=== PATIENT | female | born 1980 | race American Indian/Alaskan Native ===

== ENCOUNTER 2021-12-12 14:10 | Emergency (ER) | payer SELFPAY ==
--- NOTE | 2021-12-12 16:01 | Emergency Department Report ---
Stated Complaint: RIGHT KNEE AND FOOT PAIN SWOLLEN - HPI History of Present Illness: Right foot pain. 41-year-old male presenting with right knee pain, right foot pain. Patient report has had multiple trauma of looking through strapping on her knee and her fluids from work. Pain progressively worse. Difficulty ambulating. She denies chest pain, shortness of breath, weakness dizziness headache or vision changes. She reports knee pain, foot pain, no numbness or tingling. Well appearing female nontoxic-appearing ambulating with difficulty limping. Otherwise no obvious swelling or discoloration or deformity of extremities In the setting of a significantly high volume and record number of patients presenting to the emergency department and the fact that we have a limited space to see patients we have implemented the provider in triage protocol this allows an expedited initial exam of patients that might otherwise have left without being seen or who would wait longer than usual to be seen by provider. I interviewed the patient and performed a limited physical exam. This patient is a pulled from the waiting room to triage room for an initial assessment of adrenal studies and then returned to the waiting room pending results of the studies. The ultimate final evaluation and disposition may be performed by another provider depending on room and provider availability. MSE screening note: Focused history and physical exam performed. Due to findings the following was ordered: ED Disposition for MSE Condition: Stable
--- NOTE | 2021-12-12 16:27 | XRay Report ---
RIGHT FOOT 3 VIEWS INDICATION / CLINICAL INFORMATION: Blunt trauma to right foot (luggage dropped on foot). Pain in right foot. COMPARISON: None available. FINDINGS: BONES and JOINT(S): No acute fracture or subluxation. No significant arthritis. SOFT TISSUES: No significant abnormality. ADDITIONAL FINDINGS: None. IMPRESSION: 1. No acute findings. Signer Name: Chas Lawrence MD Signed: 12/12/2021 4:23 PM Workstation Name: [id number]
--- NOTE | 2021-12-12 16:29 | XRay Report ---
RIGHT KNEE 3 VIEWS INDICATION / CLINICAL INFORMATION: History of blunt trauma to right knee (largest drop on the). Pain in right knee. COMPARISON: None available. FINDINGS: BONES and JOINT(S): No acute fracture or subluxation. There is mild tricompartmental osteoarthritis. SOFT TISSUES: No significant abnormality. ADDITIONAL FINDINGS: None. IMPRESSION: 1. No acute findings. 2. Mild osteoarthritis. Signer Name: Chas Lawrence MD Signed: 12/12/2021 4:24 PM Workstation Name: [email or web address]
--- NOTE | 2021-12-12 23:57 | Emergency Department Report ---
ED Lower Extremity HPI - General Chief Complaint: Extremity Injury, Lower Stated Complaint: RIGHT KNEE AND FOOT PAIN SWOLLEN Time Seen by Provider: 12/12/21 23:55 Source: patient Mode of arrival: Ambulatory Limitations: No Limitations - History of Present Illness Initial Comments: 41-year-old female presents emerged from complaining pain to the right knee which started after she accidentally bumped into the tub 2 weeks ago and reports continued pain to the area pain is worse with palpation and prolonged standing. No numbness, no tingling, fever, chills, sweats. Also has pain to the top of the right foot for the last week stating, vaginitis accidentally fell on her foot resulting in pain and swelling which is much department seeking further ryan luation treatment options. MD Complaint: knee injury, foot injury -: Gradual Injury: Foot: Right Type of Injury: blunt Place: home Severity: mild, moderate Context: direct blow Associated Symptoms: swelling - Related Data Previous Rx's Medication Instructions Recorded Last Taken Type Ketorolac [Toradol] 10 mg PO Q6H PRN #14 12/13/21 Unknown Rx Allergies Allergy/AdvReac Type Severity Reaction Status Date / Time No Known Allergies Allergy Verified 12/12/21 15:55 ED Review of Systems ROS: Stated complaint: RIGHT KNEE AND FOOT PAIN SWOLLEN Other details as noted in HPI Comment: All other systems reviewed and negative ED Past Medical Hx - Past Medical History Hx Hypertension: Yes - Surgical History Additional Surgical History: Right shoulder and right knee sx - Medications Home Medications: Home Medications Medication Instructions Recorded Confirmed Last Taken Type Ketorolac [Toradol] 10 mg PO Q6H PRN #14 12/13/21 Unknown Rx ED Physical Exam - General Limitations: No Limitations General appearance: alert, in no apparent distress - Head Head exam: Present: atraumatic, normocephalic - Eye Eye exam: Present: normal appearance, PERRL - ENT ENT exam: Present: normal exam, mucous membranes moist - Neck Neck exam: Present: normal inspection, full ROM - Respiratory Respiratory exam: Present: normal lung sounds bilaterally. Absent: respiratory distress, wheezes, rales, rhonchi, chest wall tenderness - Cardiovascular Cardiovascular Exam: Present: regular rate, normal rhythm. Absent: systolic murmur, diastolic murmur, rubs, gallop - GI/Abdominal GI/Abdominal exam: Present: soft, normal bowel sounds. Absent: distended, tenderness, hyperactive bowel sounds, hypoactive bowel sounds, organomegaly, mass - Extremities Exam Extremities exam: Present: normal inspection, full ROM, normal capillary refill - Expanded Lower Extremity Exam Right Knee exam: Present: tenderness, full knee extension. Absent: swelling, abrasion, laceration, ecchymosis, deformity, pain w/ pronation/supination, posterior draw sign Foot/Toe exam: Present: tenderness (Tenderness to the dorsum of the foot slightly laterally located wrist where there is no swelling. Pulses 2+ capillary fill is brisk. No broken skin. No tenderness to the anterior talofibular left ligament region. No tenderness to the malleoli region.), swelling. Absent: ecchymosis, deformity, amputation, puncture wound Neuro vascular tendon exam: Present: no vascular compromise - Back Exam Back exam: Present: normal inspection. Absent: CVA tenderness (R), CVA tenderness (L) - Neurological Exam Neurological exam: Present: alert, oriented X3, CN II-XII intact - Psychiatric Psychiatric exam: Present: normal affect, normal mood - Skin Skin exam: Present: warm, dry, intact, normal color. Absent: rash ED Course Vital Signs 12/12/21 15:51 Temperature 99.3 F Pulse Rate 89 Respiratory 18 Rate Blood Pressure 179/92 [Right] O2 Sat by Pulse 100 Oximetry ED Lower Extremity MDM - Radiology Data Radiology results: report reviewed [facility] [address] [place] [address] XRay Report Signed Patient: CAROLYN BIRD MR#: [id number] : 1980 Acct:[id number] Age/Sex: 41 / F ADM Date: 12/12/21 Loc: ED Attending Dr: Ordering Physician: SHAHNAZ BUSTOS NP Date of Service: 12/12/21 Procedure(s): XR knee 3V RT Accession Number(s): [id number] cc: SHAHNAZ BUSTOS NP Fluoro Time In Minutes: RIGHT KNEE 3 VIEWS INDICATION / CLINICAL INFORMATION: History of blunt trauma to right knee (largest drop on the). Pain in right knee. COMPARISON: None available. FINDINGS: BONES and JOINT(S): No acute fracture or subluxation. There is mild tricompartmental osteoarthritis. SOFT TISSUES: No significant abnormality. ADDITIONAL FINDINGS: None. IMPRESSION: 1. No acute findings. 2. Mild osteoarthritis. Signer Name: Chas Lawrence MD Signed: 12/12/2021 4:24 PM Workstation Name: [id number] Transcribed By: MADHURI Dictated By: Chas Lawrence MD Electronically Authenticated By: Chas Lawrence MD Signed Date/Time: 12/12/211623 DD/ 22 TD/TT: [facility] [address] [place] [address] XRay Report Signed Patient: CAROLYN BIRD MR#: [id number] : 1980 Acct:[id number] Age/Sex: 41 / F ADM Date: 12/12/21 Loc: ED Attending Dr: Ordering Physician: SHAHNAZ BUSTOS NP Date of Service: 12/12/21 Procedure(s): XR foot 3+V RT Accession Number(s): [id number] cc: SHAHNAZ BUSTOS NP Fluoro Time In Minutes: RIGHT FOOT 3 VIEWS INDICATION / CLINICAL INFORMATION: Blunt trauma to right foot (luggage dropped on foot). Pain in right foot. COMPARISON: None available. FINDINGS: BONES and JOINT(S): No acute fracture or subluxation. No significant arthritis. SOFT TISSUES: No significant abnormality. ADDITIONAL FINDINGS: None. IMPRESSION: 1. No acute findings. Signer Name: Chas Lawrence MD Signed: 12/12/2021 4:23 PM Workstation Name: [id number] Transcribed By: MADHURI Dictated By: Chas Lawrence MD Electronically Authenticated By: Chas Lawrence MD Signed Date/Time: 12/12/211622 DD/ 21 TD/TT: Critical care attestation.: If time is entered above; I have spent that time in minutes in the direct care of this critically ill patient, excluding procedure time. ED Disposition Clinical Impression: Contusion of right foot, Right knee pain Disposition: 01 HOME / SELF CARE / HOMELESS Is pt being admited?: No Does the pt Need Aspirin: No Condition: Stable Instructions: Acute Knee Pain, Adult, Contusion, Crush Injury of the Foot, Foot Contusion, How to Use a Knee Brace, How to Use Cold Therapy, [id number] Prescriptions: Ketorolac [Toradol] 10 mg PO Q6H PRN #14 PRN Reason: Pain Referrals: SHANNON HEALY MD [Primary Care Provider] - 3-5 Days [facility] [Provider Group] - 3-5 Days
[2021-12-13 02:14] VITALS: BP 144/83
== END 2021-12-13 02:13 | disposition home or self-care (01) ==
LOC: ED 14:10
DX: S80.01XA Contusion of right knee, initial encounter (principal); M79.671 Pain in right foot; I10 Essential (primary) hypertension; Z98.890 Other specified postprocedural states; W22.8XXA Striking against or struck by other objects, initial encounter; Y93.89 Activity, other specified; Y92.89 Other specified places as the place of occurrence of the external cause; Y99.8 Other external cause status
CPT/HCPCS: 99283